=== PATIENT | male | born 1995 | race Caucasian/White ===

== ENCOUNTER 2020-07-10 19:12 | Emergency (ER) | payer OTHER ==
[~2020-07-10] VITALS: Ht 175.3 cm; Wt 82.2 kg
[2020-07-10 19:29] VITALS: BP 129/69
--- NOTE | 2020-07-10 20:57 | NUR ---
TRIAGE TASK RN: PT. D/C FROM TRIAGE AFTER SLING PLACEMENT. PT. SKIN PWD. NO DISTRESS NOTED. VERBALIZED UNDERSTANDING OF F/U WITH ORTHO.
== END 2020-07-10 20:57 | disposition home or self-care (01) ==
LOC: ED 20:51
DX: S46.911A Strain of unspecified muscle, fascia and tendon at shoulder and upper arm level, right arm, initial encounter (principal); X58.XXXA Exposure to other specified factors, initial encounter; Y93.89 Activity, other specified; Y92.89 Other specified places as the place of occurrence of the external cause; Y99.8 Other external cause status
CPT/HCPCS: 99283